=== PATIENT | male | born 1950 | race Caucasian/White ===

== ENCOUNTER 2020-09-03 08:22 | Outpatient (CLI) | payer MEDICARE, OTHER | END 2020-09-03 23:59 | disposition home or self-care (01) | LOC: LAB 08:22 | PROVIDERS: ATTEND Ophthalmology | DX: Z75.3 Unavailability and inaccessibility of health-care facilities (principal) ==

== ENCOUNTER 2020-09-05 05:51 | Day surgery (SDC) | payer MEDICARE, OTHER ==
[2020-09-05] MEDS ORDERED: IRR STERIL WATER FOR IRR 1000 ML BOTTLE IR ONE (05:52)
[2020-09-05] MEDS ORDERED: KETOROLAC 0.5% OPHT DROP 3 ML BOTTLE ONE (06:43)
[2020-09-05] MEDS ORDERED: CIPROFLOXACIN 0.3% OPHT DROP 2.5 ML BOTTLE ONE (06:44)
[2020-09-05] MEDS ORDERED: CYCLOPENTOLATE 1% OPHT DROP 2 ML BOTTLE ONE (06:44)
[2020-09-05] MEDS ORDERED: PHENYLEPHRINE 2.5% OPHT DROP 2 ML BOTTLE ONE (06:44)
[2020-09-05] MEDS ORDERED: TROPICAMIDE 1% OPHT DROP 3 ML BOTTLE ONE (06:44)
[2020-09-05] MEDS ORDERED: BALANCED SALT IRRIG SOLN COMB1 500 ML, EPINEPHRINE-PF 1:1000 0.5 MG IO ONE (07:00)
[2020-09-05] MEDS ORDERED: MOXIFLOXACIN HCL 3 ML OPHT DROPS ONE (07:25)
[2020-09-05] MEDS ORDERED: BUPIVACAINE 0.25% 30 ML VIAL ONE (07:26)
[2020-09-05] MEDS ORDERED: NEO/POLYMYX B/DEXAME OPHT OINT 3.5 GM TUBE ONE (07:26)
[2020-09-05] MEDS ORDERED: ACETYLCHOLINE CHLORIDE 1% OPHT 1 EA KIT ONE (07:26)
[2020-09-05] MEDS ORDERED: BALANCED SALT IRRIG SOLN COMB2 15 ML IRRIG.SOLN ONE (07:26)
[2020-09-05] MEDS ORDERED: BALANCED SALT IRRIG SOLN COMB1 500 ML ONE (07:26)
[2020-09-05] MEDS ORDERED: LIDOCAINE-MPF 2% 5 ML VIAL ONE ×2 (07:26→07:41)
[2020-09-05] MEDS ORDERED: TIMOLOL MALEATE 0.5% OPHT DROP 5 ML BOTTLE ONE (07:26)
[2020-09-05] MEDS ORDERED: HYALURONATE SODIUM 12.8 MG/0.8 ML DISP.SYRIN ONE (07:27)
[2020-09-05] MEDS ORDERED: HYALURONIDASE,OVINE 200 UNITS/ML VIAL ONE ×2 (07:27→07:41)
[2020-09-05] MEDS ORDERED: BUPIVACAINE PF 0.5% 30 ML VIAL ONE (07:41)
[2020-09-05] MEDS ORDERED: FENTANYL CITRATE 100 MCG/2 ML AMPUL ONE (08:03)
[2020-09-05] MEDS ORDERED: PHENYLEPHRINE 10% OPHT DROP 5 ML BOTTLE ONE (08:04)
[2020-09-05] MEDS ORDERED: ATROPINE SULFATE 1% OPHT DROP 2 ML ONE (08:05)
== END 2020-09-05 10:27 ==
LOC: DS 05:51
PROVIDERS: ATTEND Ophthalmology
DX: H25.89 Other age-related cataract (principal); M15.0 Primary generalized (osteo)arthritis; E78.5 Hyperlipidemia, unspecified; F29 Unspecified psychosis not due to a substance or known physiological condition; F25.0 Schizoaffective disorder, bipolar type; F32.9 Major depressive disorder, single episode, unspecified; F41.9 Anxiety disorder, unspecified; Z86.73 Personal history of transient ischemic attack (TIA), and cerebral infarction without residual deficits; Z79.899 Other long term (current) drug therapy; Z98.890 Other specified postprocedural states
CPT/HCPCS: A4217; A4663; J0171; J3010; J3471; J3490; J7120; J7321; V2632